=== PATIENT | female | born 1965 | race Caucasian/White ===

== ENCOUNTER 2017-09-26 11:31 | Emergency (ER) | payer BC, OTHER ==
[2017-09-26] MEDS ORDERED: ASPIRIN 325 MG TABLET PO ONE (12:01)
--- NOTE | 2017-09-26 12:03 | Emergency Department Record ---
History of Present Illness - General Chief Complaint: Chest Pain Stated Complaint: CHEST PAIN Time Seen by Provider: 09/26/17 11:56 Source: Patient Mode of Arrival: Ambulatory Limitations: No limitations - History of Present Illness Initial Comments: The patient is here due to a 2 day hx of CP. The pain is described as a retrosternal pressure that is nonradiating. She describes it as quite severe but no associated with nausea, vomiting, CYNTHIA, SOB, or sweating. The onset was after waking and it has lasted 3-5 minutes and then slowly resolved. Presently the patient is pain free. She has cardiac risk factors of a strong family hx, and tobacco use. MD Complaint: Chest pain Onset/Timin -: Days(s) Onset: Awoke with symptoms Pain Location: Substernal Pain Radiation: None Severity: Moderate Severity scale (1-10): 7 Quality: Aching, Dull Consistency: Intermittent, Now resolved Improves With: Nothing Worsens With: Nothing Anginal Symptoms: Other Treatments Prior to Arrival: None - Related Data Home Medications Medication Instructions Recorded Confirmed Last Taken Buprenorphine HCl/Naloxone HCl 1 each SL DAILY 09/26/17 09/26/17 09/25/17 [Suboxone 4 mg-1 mg Sl Film] Clonidine HCl 0.1 mg PO QHS 09/26/17 09/26/17 09/25/17 Quetiapine Fumarate [Seroquel] 100 mg PO QHS 09/26/17 09/26/17 09/25/17 Allergies Allergy/AdvReac Type Severity Reaction Status Date / Time ampicillin AdvReac HIVES Verified 09/26/17 11:34 Travel Screening - Travel/Exposure Within Last 30 Days Have you traveled within the last 30 days?: No - Travel/Exposure Within Last Year Have you traveled outside the [place] in the last year?: No - Additonal Travel Details Have you been exposed to anyone with a communicable illness?: No - Travel Symptoms Symptom Screening: None Review of Systems Constitutional: Denies: Chills, Fever Eyes: Denies: Eye discharge ENT: Denies: Congestion Respiratory: Denies: Cough, Dyspnea Past Medical History - SOCIAL HISTORY Smoking Status: Heavy tobacco smoker (>10/day) - RESPIRATORY Hx Respiratory Disorders: No - CARDIOVASCULAR Hx Cardio Disorders: No - NEURO Hx Neuro Disorders: No - GI Hx GI Disorders: Yes Hx Hepatitis/Jaundice: Yes (HEP C) - Hx Genitourinary Disorders: No - ENDOCRINE Hx Endocrine Disorders: No - MUSCULOSKELETAL Hx Musculoskeletal Disorders: No - PSYCH Hx Psych Problems: Yes Hx Anxiety: Yes Hx Depression: Yes Hx Suicide Attempt: Yes (1998 alcohol) - HEMATOLOGY/ONCOLOGY Hx Hematology/Oncology Disorders: No Comment:: Hepatitis C Family Medical History Any Significant Family History?: No Hx Dementia: Grandparents Hx Diabetes: Grandparents Hx HTN: Father, Mother Hx Seizures: Children Physical Exam - General General Appearance: Alert, Oriented x3, Cooperative, No acute distress - Head Head exam: Atraumatic, Normocephalic, Normal inspection - Eye Eye exam: Normal appearance, PERRL - ENT Throat exam: Normal inspection. negative: Tonsillar erythema, Tonsillar exudate - Neck Neck exam: Normal inspection, Full ROM. negative: Tenderness - Respiratory Respiratory exam: Normal lung sounds bilaterally. negative: Respiratory distress - Cardiovascular Cardiovascular Exam: Regular rate, Normal rhythm, Normal heart sounds - GI/Abdominal GI/Abdominal exam: Soft, Normal bowel sounds. negative: Tenderness - Extremities Extremities exam: Normal inspection, Full ROM, Normal capillary refill. negative: Tenderness - Neurological Neurological exam: Alert, Normal gait. negative: Abnormal gait, Motor sensory deficit Course Vital Signs 09/26/17 11:39 Temperature 98.4 F Pulse Rate 62 Respiratory 18 Rate Blood Pressure 119/77 Pulse Ox 98 - Reevaluation(s) Reevaluation #1: The patient is doing very well at this time. She is still pain free and resting comfortably. Due to needing a stress test in my opinion the patient will need to be transferred to a larger hospital and she would like to go to [facility]. I did discuss the case with Dr. Anthony and she does accept the patient to the hospital. I also did discuss the case with Dr. George (Cardiology) and he will consult. 09/26/17 13:31 09/26/17 13:34 Reevaluation #2: The patient is presently refusing an ambulance to [facility]. She understands the risks of driving there which include having an KS, stroke, being disabled and even . The patient understands and accepts the risks and will refuse the ambulance. 09/26/17 13:36 09/26/17 13:37 Medical Decision Making - Data Complexity MDM Data: Labs Ordered and/or Reviewed, X-Ray Ordered and/or Reviewed, EKG Ordered and/or Reviewed - Lab Data Result diagrams: 09/26/17 12:00 09/26/17 12:00 - EKG Data -: EKG Interpreted by Me EKG: No Acute Changes - Radiology Data Radiology results: Report reviewed (CXR: Neg.) Disposition Disposition: Transfer Clinical Impression: Chest pain Qualifiers: Chest pain type: unspecified Qualified Code(s): R07.9 - Chest pain, unspecified Disposition: Acute Care Hospital Transfer Transfer To: [facility] Reason For Transfer: Cardiology Accepting Physician: Gabrielle. Time Discussed w/Accepting Physician: 13:38 Condition: (2) Stable Forms: Patient Portal Access Time of Disposition: 13:38 Quality - Quality Measures Quality Measures: N/A - Blood Pressure Screening View Details: Yes Does Patient Have Any of the Following: No Blood Pressure Classification: Pre-Hypertensive BP Reading Systolic Measurement: 124 Diastolic Measurement: 79 Screening for High Blood Pressure: < Pre-Hypertensive BP, F/U Documented > [ [id number]] Pre-Hypertensive Follow-up Interventions: Referral to alternative/primary care provider.
[2017-09-26 12:14] LABS: EOS % 3.4 % (0-6); GRAN % 44.9 % (47-80); HEMATOCRIT 39.8 % (35.0-47.0); HEMOGLOBIN 13.9 gm/dl (11.6-16.0); LYMPH % 40.6 % (16-45); MEAN CELL VOLUME 94.3 fl (81-97); MEAN CORPUSCULAR HEMOGLOBIN 32.9 pg (27-33); MEAN CORPUSCULAR HGB CONC 34.9 g/dl (32-36); MEAN PLATELET VOLUME 10.1 fl (7.4-10.4); MONO % 10.1 % (0-9); PLATELET COUNT 203 K/uL (130-400); RED BLOOD COUNT 4.22 M/uL (3.80-5.40); RED CELL DISTRIBUTION WIDTH 12.5 % (11.5-14.5); WHITE BLOOD COUNT W/O DIFF 4.2 K/uL (4.2-12.2)
[2017-09-26 12:21] LABS: BLOOD UREA NITROGEN 10 mg/dL (6-20); CREATININE 0.7 mg/dL (0.5-0.9); EST GLOMERULAR FILTRATION RATE > 60 mL/min
[2017-09-26 12:24] LABS: GLUCOSE,RANDOM 103 mg/dL (74-109)
[2017-09-26 12:27] LABS: CREATINE PHOSPHOKINASE 47 U/L (26-192)
[2017-09-26 12:29] LABS: CKMB 1.6 ng/mL (<3.77)
--- NOTE | 2017-09-28 09:21 | RADIOLOGY REPORT ---
EXAM: CHEST, TWO VIEWS HISTORY: DIFFICULTY BREATHING. TECHNIQUE: Frontal and lateral views of the chest were performed. FINDINGS: The heart size is normal. The lung rodriges are clear. The osseous structures are normal. IMPRESSION: NEGATIVE CHEST EXAMINATION. JOB NUMBER: [id number] MTDD
== END 2017-09-26 14:54 | disposition short-term general hospital (02) ==
LOC: ER 11:31
DX: R07.2 Precordial pain (principal); R06.00 Dyspnea, unspecified; F17.210 Nicotine dependence, cigarettes, uncomplicated
CPT/HCPCS: 71046; 80048; 82550; 82553; 84484; 85025; 93005; 93010; 99285